=== PATIENT | male | born 1965 | race Caucasian/White ===

== ENCOUNTER 2019-04-18 06:25 | Day surgery (SDC) | payer BC, OTHER ==
[2019-04-15 08:18] VITALS: BMI 28.7
[2019-04-18] MEDS ORDERED: PROPOFOL 20 ML ONE ×2 (07:08→08:25)
[2019-04-18] MEDS ORDERED: MIDAZOLAM HCL 2 MG/2 ML SINGLE DOSE VIAL ONE (07:08)
[2019-04-18] MEDS ORDERED: DESFLURANE GAS 240 ML BOTTLE IH ONE (07:13)
[2019-04-18] MEDS ORDERED: BUPIVACAINE HCL/PF 0.5% (5MG/ML) 10 ML VIAL ONE (07:29)
[2019-04-18] MEDS ORDERED: DEXAMETHASONE SOD PHOSPHATE 4 MG/1 ML VIAL ONE (07:29)
[2019-04-18] MEDS ORDERED: methylPREDNISolone ACET (DEPO) 80 MG/1 ML VIAL ONE (08:04)
[2019-04-18] MEDS ORDERED: methylPREDNISolone NA SUCC 40 MG/1 ML VIAL IM ONE (08:07)
[2019-04-18] MEDS ORDERED: BUPIVACAINE HCL/PF (5 MG/ML) 30 ML VIAL IJ ONE (08:07)
[2019-04-18] MEDS ORDERED: LIDOCAINE HCL 1%, 10 MG/ML (50 mL VIAL) IJ ONE (08:07)
[2019-04-18 08:24] VITALS: TEMP 97.5
[2019-04-18] MEDS ORDERED: ACETAMINOPHEN 325 MG TABLET (FP) PO PRN (08:49)
[2019-04-18] MEDS ORDERED: ONDANSETRON 4 MG/2 ML VIAL IVPUSH PRN (08:49)
[2019-04-18] MEDS ORDERED: oxyCODONE HCL 5 MG TABLET PO PRN ×2 (08:49)
[2019-04-18] MEDS ORDERED: LACTATED RINGERS SOLUTION 1,000 ML IV SCH (09:00)
[2019-04-18 11:04] VITALS: BP 130/81; PULSE 65
--- NOTE | 2019-04-18 11:05 | OP ---
DATE OF OPERATION: 04/18/2019 PREOPERATIVE DIAGNOSIS: Left L4-5 paracentral disk herniation with lumbar radiculopathy. POSTOPERATIVE DIAGNOSIS: Left L4-5 paracentral disk herniation with lumbar radiculopathy. ATTENDING SURGEON: Kole Ann MD PROCEDURES: 1. Left L4-5 epidural steroid injection. 2. Trial fluoroscopy. ANESTHESIA: Local with IV sedation. ANESTHESIOLOGIST: MARGA Golden INDICATIONS: The patient is a 54-year-old male with recurrent back pain, lumbar radiculopathy. Because of intractable symptoms and failure of conservative treatment, he is here for the 1st epidural steroid injection of the year. He had previously received lumbar epidural steroid injections several years ago with excellent results. The risks of procedure include, but are not limited to, bleeding, infection, spinal headache, and neurologic injury. The patient understands the indication for the procedure, procedure in detail, risks and benefits and alternatives for treatment of his lumbar condition and wished to proceed. No guarantees are given for a favorable outcome. PROCEDURE IN DETAIL: After the patient was taken to the operating room, he was placed in a prone position with a pillow under his hips. Lumbar region was cleaned with alcohol and painted with Betadine. Skin wheal was raised using 1% Xylocaine. A 22-gauge spinal needle was inserted under AP fluoroscopic guidance from the left-sided approach to the L4-5. Loss of resistance technique was utilized, and there was no CSF or blood backflow. Depo-Medrol 80 mg and 1 mL of 0.25% Marcaine was injected. The needle was withdrawn. Sterile Band-Aid was applied. The patient tolerated procedure well, was turned to supine position. Moving bilateral lower extremities well. He did not complain of a headache. KOLE ANN M.D. [id number]
== END 2019-04-18 09:50 | disposition home or self-care (01) ==
LOC: JASU-SURG 06:25
PROVIDERS: ATTEND Neurological Surgery
PROC: 3E0R33Z Introduction of Anti-inflammatory into Spinal Canal, Percutaneous Approach (ICD-10-PCS; 2019-04-18)
PROC: B01BZZZ Fluoroscopy of Spinal Cord (ICD-10-PCS; 2019-04-18)
PROC: 3E0R3BZ Introduction of Anesthetic Agent into Spinal Canal, Percutaneous Approach (ICD-10-PCS; principal; 2019-04-18 08:00)
DX: M51.16 Intervertebral disc disorders with radiculopathy, lumbar region (principal)
CPT/HCPCS: 76000-TC-FY

== ENCOUNTER 2019-05-23 07:01 | Day surgery (SDC) | payer BC ==
[2019-05-19 14:51] VITALS: BMI 28.7
[2019-05-23] MEDS ORDERED: BUPIVACAINE HCL/PF 0.25% (2.5MG/ML) 10 ML VIAL IJ ONE (08:48)
[2019-05-23] MEDS ORDERED: methylPREDNISolone ACET (DEPO) 80 MG/1 ML VIAL IJ ONE (08:49)
[2019-05-23] MEDS ORDERED: LIDOCAINE HCL/PF 2% SDV 5ML VIAL ONE (08:52)
[2019-05-23 10:09] VITALS: BP 120/79; PULSE 60; TEMP 98.2
--- NOTE | 2019-05-23 14:05 | OP ---
DATE OF OPERATION: 05/23/2019 PREOPERATIVE DIAGNOSES: L4-5 disk herniation with left L4-5 radiculopathy. POSTOPERATIVE DIAGNOSES: L4-5 disk herniation with left L4-5 radiculopathy. ATTENDING SURGEON: Kole Ann MD PROCEDURE: 1. Left L4-5 epidural steroid injection. 2. Intraoperative fluoroscopy. ANESTHESIA: Local with IV sedation. ANESTHESIOLOGIST: Laura Smyth MD INDICATION: The patient is a 54-year-old male with intractable lower back pain and left lower extremity radiculopathy. Because of intractable symptoms and failure of conservative treatment, he is here for the 2nd epidural steroid injection. The 1st injection did not help him much, unfortunately. The risks of procedure include but are not limited to bleeding, infection, spinal headache, and neurological injury. The patient understands the indications for the procedure, procedure in detail, risks and benefits, and alternatives for treatment of his lumbar condition and wished to proceed. He understands that a 3rd injection will not be attempted if the 2nd injection does not help him significantly. PROCEDURE IN DETAIL: After the patient was taken to the operating room, he was placed in a prone position with pillow under his hips. The lumbar region was cleaned with alcohol and prepped with Betadine. A skin wheal was raised with 5 mL of 1% Xylocaine. A 23-gauge spinal needle was inserted under AP and lateral fluoroscopic guidance towards the epidural space from a left-sided approach at L4-5. [id number] technique was utilized and there was no CSF or blood backflow. Then 80 mg of Depo-Medrol and 1 mL of 0.25% Marcaine was injected. The needle was withdrawn, bandage was applied. The procedure was performed with AP and lateral fluoroscopic guidance. The OR timeout procedure was followed. The patient was able to move bilateral upper and lower extremities well after injection. He did not complain of headache. KOLE ANN M.D. [id number]
== END 2019-05-23 10:09 | disposition home or self-care (01) ==
LOC: JASU-SURG 07:01
PROVIDERS: ATTEND Neurological Surgery
PROC: 3E0R33Z Introduction of Anti-inflammatory into Spinal Canal, Percutaneous Approach (ICD-10-PCS; 2019-05-23)
PROC: B01BZZZ Fluoroscopy of Spinal Cord (ICD-10-PCS; 2019-05-23)
PROC: 3E0R3BZ Introduction of Anesthetic Agent into Spinal Canal, Percutaneous Approach (ICD-10-PCS; principal; 2019-05-23 08:30)
DX: M51.16 Intervertebral disc disorders with radiculopathy, lumbar region (principal)
CPT/HCPCS: 76000-TC-FY